=== PATIENT | female | born 1995 | race Hispanic/Latino ===

== ENCOUNTER 2020-04-26 23:13 | Observation (INO) | payer MEDICAID, OTHER ==
[~2020-04-26] VITALS: Ht 30.5 cm; Wt 2.4 kg
[2020-04-26] MEDS ORDERED: LACTATED RINGERS 1000ML 1,000 ML IV PRN (23:24)
[2020-04-27] MEDS ORDERED: ACETAMINOPHEN 325 MG TAB PO ONE (01:00)
[2020-04-27] MEDS ORDERED: ACETAMINOPHEN 325 MG TAB ONE (01:00)
== END 2020-04-27 01:35 | disposition home or self-care (01) ==
LOC: EDH 23:13 → LDH 23:38
PROVIDERS: ADMIT Obstetrics & Gynecology; ATTEND Obstetrics & Gynecology
DX: O60.03 Preterm labor without delivery, third trimester (principal); Z3A.34 34 weeks gestation of pregnancy
CPT/HCPCS: 80305; 81001; 96360; 99284; G0378 ×2; J7120